=== PATIENT | male | born 1995 | race Two or more races ===

== ENCOUNTER 2021-04-28 08:43 | Inpatient (IN) | payer MEDICAID, OTHER ==
[~2021-04-28] VITALS: Ht 167.6 cm
[2021-04-28] MEDS ORDERED: SODIUM CHLORIDE 0.9% 1,000 ML IV ONE ×2 (09:15→14:45)
[2021-04-28 09:22] LABS: Red Cell Distribution Width 13.3 % (11.8-14.3)
[2021-04-28 09:24] LABS: Hematocrit 54.2 % (41.0-53.0); Hemoglobin 19.1 g/dL (13.5-17.5); Mean Corpuscular Hemoglobin 30.2 pg (28.0-32.0); Mean Corpuscular Hgb Conc. 35.2 g/dL (32.0-36.0); Mean Corpuscular Volume 85.8 fL (80.0-100.0); Red Blood Cells 6.32 10^6/uL (4.5-5.90); White Blood Cell 23.6 10^3/uL (4.4-10.8)
[2021-04-28 09:37] LABS: Calcium 9.1 mg/dL (8.5-10.1); Potassium 3.2 mmol/L (3.5-5.1)
[2021-04-28] MEDS ORDERED: IOHEXOL 350 MG/ML 100ML IJ ONE (09:37)
[2021-04-28 09:43] LABS: Albumin 2.9 g/dL (3.4-5.0); BUN/Creatinine Ratio 17.6; Bilirubin, Total 2.9 mg/dL (0.2-1.0); Total Protein 8.1 g/dL (6.4-8.2)
[2021-04-28 09:45] LABS: Amphetamine Screen, Urine NEGATIVE (NEGATIVE); Barbiturate Scree,Urine POSITIVE (NEGATIVE); Benzodiazephine Screen, Urine NEGATIVE (NEGATIVE); Cocaine Screen, Urine NEGATIVE (NEGATIVE); Opiate Scree,Urine NEGATIVE (NEGATIVE); Phencyclidine Screen, Urine NEGATIVE (NEGATIVE)
[2021-04-28 09:52] LABS: Cannabinoid Screen, Urine POSITIVE (NEGATIVE)
[2021-04-28] MEDS ORDERED: IOHEXOL 300 MG/ML 100ML BOTTLE IJ ONE (09:52)
[2021-04-28 09:58] LABS: Band Neutrophils % (manual) 0; Basophils % (manual) 0 (0.0-2.0); Blast Cells 0; Eosinophils % (manual) 0 (0-7); Metamyelocytes % 0; Myelocytes % 0; Promyelocytes % 0; Reactive Lymphocytes 0
[2021-04-28 10:30] LABS: Lymphocytes % (manual) 4 (10.0-50.0); Monocytes % (manual) 2 (0-12)
[2021-04-28] MEDS ORDERED: PIPERACILLIN-TAZOB 3.375GM 100 ML IV ONE ×2 (10:45→14:45)
[2021-04-28] MEDS ORDERED: ONDANSETRON HCL 4 MG/2 ML VIAL IV ONE ×2 (10:45→14:45)
[2021-04-28] MEDS ORDERED: SODIUM CHLORIDE 0.9% 1,000 ML IVB ONE (10:45)
[2021-04-28] MEDS ORDERED: MORPHINE SULFATE 4 MG/ML SYR/VIAL IV ONE (10:45)
[2021-04-28] MEDS ORDERED: METOCLOPRAMIDE HCL 5MG/ml INJ 2ml VIAL IV PRN (12:30)
[2021-04-28] MEDS ORDERED: MORPHINE SULFATE 4 MG/ML SYR/VIAL IV PRN (12:30)
[2021-04-28] MEDS ORDERED: GLYCOPYRROLATE 0.2 MG/ML 1ML VIAL ONE (12:40)
[2021-04-28] MEDS ORDERED: MIDAZOLAM HCL 2MG/2ML 2ml VIAL (1mg/ml) ONE (12:40)
[2021-04-28] MEDS ORDERED: fentaNYL CITRATE 100 MCG/2 ML VL ONE ×2 (12:40→13:17)
[2021-04-28] MEDS ORDERED: ROCURONIUM 10MG/ML 10ML VIAL IV ONE (12:40)
[2021-04-28] MEDS ORDERED: NEOSTIGMINE 1 MG/ML INJ (10mg/10ML VIAL) ONE (12:40)
[2021-04-28] MEDS ORDERED: MEPERIDINE HCL (25 MG/ML) 1ML VIAL ONE (12:40)
[2021-04-28] MEDS ORDERED: ONDANSETRON HCL 4 MG/2 ML VIAL ONE (12:40)
[2021-04-28] MEDS ORDERED: SODIUM CHLORIDE LOCK 10 ML ONE (12:40)
[2021-04-28] MEDS ORDERED: PROPOFOL 10 MG/ML 20 ML IV ONE (12:40)
[2021-04-28] MEDS ORDERED: SUCCINYLCHOLINE CHLORIDE 20 MG/ML 10ML VIAL IV ONE (12:54)
[2021-04-28] MEDS: BUPIVACAINE 0.25% INJ 50ML VIAL ONE ×2 (12:58→14:20)
[2021-04-28] MEDS ORDERED: metroNIDAZOLE 500MG/100ML 100 ML IV ONE ×2 (13:03→14:45)
[2021-04-28] MEDS: metroNIDAZOLE 500MG/100ML 100 ML IV SCH ×2 (13:04→23:17)
[2021-04-28] MEDS ORDERED: fentaNYL CITRATE 5 ML ONE (13:31)
[2021-04-28 13:32] LABS: INR 1.44 (0.9-1.15); Partial Thromboplastin Time 28.5 sec (23.6-33.0)
[2021-04-28] MEDS ORDERED: POVIDONE IODINE 10 % TOPICAL OINT 30GM TOP ONE (14:23)
[2021-04-28] MEDS ORDERED: ONDANSETRON HCL 4 MG/2 ML VIAL IM ONE (14:45)
[2021-04-28] MEDS ORDERED: HYDROmorphone HCL 2 MG/ML VL IV ONE (14:45)
[2021-04-28] MEDS ORDERED: PANTOPRAZOLE 40 MG/10 ML VIAL INJ IV ONE (14:45)
[2021-04-28] MEDS ORDERED: HYDROmorphone HCL 2 MG/ML VL ONE (15:21)
[2021-04-28] MEDS: HYDROmorphone HCL 2 MG/ML VL IV PRN ×2 (15:23→15:53)
[2021-04-28] MEDS ORDERED: NITROGLYCERIN 0.4 MG SL TAB SL PRN (16:00)
[2021-04-28] MEDS ORDERED: hydrALAZINE HCL 20 MG/ML VL IV PRN (16:00)
[2021-04-28] MEDS ORDERED: MORPHINE SULFATE INJECTION 2 MG/ML SYRG IV PRN (16:00)
[2021-04-28] MEDS ORDERED: ACETAMINOPHEN 325 MG RECT SUPP PR PRN (16:00)
[2021-04-28] MEDS ORDERED: ONDANSETRON HCL 4 MG/2 ML VIAL IV PRN (16:00)
[2021-04-28] MEDS: POTASSIUM CHLORIDE 20 MEQ in D5W/LACTATED RINGERS 1,000 ML IV SCH (17:50)
[2021-04-28] MEDS: PIPERACILLIN-TAZOB 3.375GM 100 ML IV SCH (19:00)
[2021-04-28] MEDS ORDERED: METOPROLOL TARTRATE 1MG/1ML-5ML VIAL IV ONE (19:35)
[2021-04-28] MEDS: METOPROLOL TARTRATE 1MG/1ML-5ML VIAL IV PRN (19:40)
[2021-04-28 21:12] VITALS: BP 102/49
[2021-04-28] MEDS ORDERED: INFLUENZA QUAD 2021-2022 0.5 ML SYRG IM ONE (21:30)
[2021-04-28 22:00] VITALS: BP 131/83
[2021-04-28 22:11] LABS: Hematocrit 49.5 % (41.0-53.0); Hemoglobin 16.7 g/dL (13.5-17.5); Mean Corpuscular Hgb Conc. 33.7 g/dL (32.0-36.0); Mean Corpuscular Volume 86.1 fL (80.0-100.0); Red Blood Cells 5.75 10^6/uL (4.5-5.90); Red Cell Distribution Width 13.2 % (11.8-14.3); White Blood Cell 28.4 10^3/uL (4.4-10.8)
[2021-04-28 22:13] LABS: Calcium 7.3 mg/dL (8.5-10.1); Potassium 3.8 mmol/L (3.5-5.1)
[2021-04-28 22:17] LABS: Basophils % (manual) 0 (0.0-2.0); Blast Cells 0; Eosinophils % (manual) 0 (0-7); Myelocytes % 0; Promyelocytes % 0; Reactive Lymphocytes 0
[2021-04-28 22:54] LABS: Band Neutrophils % (manual) 75; Lymphocytes % (manual) 3 (10.0-50.0); Metamyelocytes % 1; Monocytes % (manual) 5 (0-12)
[2021-04-29] MEDS: POTASSIUM CHLORIDE 20 MEQ in D5W/LACTATED RINGERS 1,000 ML IV SCH ×3 (00:51→13:01)
[2021-04-29] MEDS: LORazepam 2MG/ML-1ML VIAL IV PRN (02:57)
[2021-04-29] MEDS: metroNIDAZOLE 500MG/100ML 100 ML IV SCH ×3 (04:53→17:59)
[2021-04-29 05:37] VITALS: BP 140/83
[2021-04-29 06:06] LABS: Hematocrit 47.4 % (41.0-53.0); Mean Corpuscular Hemoglobin 29.2 pg (28.0-32.0); Mean Corpuscular Hgb Conc. 33.7 g/dL (32.0-36.0); Mean Corpuscular Volume 86.6 fL (80.0-100.0); Red Blood Cells 5.47 10^6/uL (4.5-5.90); Red Cell Distribution Width 13.5 % (11.8-14.3); White Blood Cell 26.1 10^3/uL (4.4-10.8)
[2021-04-29] MEDS: PIPERACILLIN-TAZOB 3.375GM 100 ML IV SCH ×4 (06:21→18:00)
[2021-04-29 06:54] LABS: Basophils % (manual) 0 (0.0-2.0); Blast Cells 0; Eosinophils % (manual) 0 (0-7); Promyelocytes % 0; Reactive Lymphocytes 0
[2021-04-29 07:09] LABS: Potassium 3.8 mmol/L (3.5-5.1)
[2021-04-29 07:47] LABS: Albumin 1.6 g/dL (3.4-5.0); BUN/Creatinine Ratio 24.7; Bilirubin, Total 1.8 mg/dL (0.2-1.0); Calcium 7.7 mg/dL (8.5-10.1); Total Protein 4.9 g/dL (6.4-8.2)
[2021-04-29 08:00] VITALS: BP 134/78
[2021-04-29 08:03] LABS: Band Neutrophils % (manual) 48; Lymphocytes % (manual) 3 (10.0-50.0); Metamyelocytes % 1; Monocytes % (manual) 2 (0-12); Myelocytes % 1
[2021-04-29 08:37] VITALS: BP 140/80
[2021-04-29] MEDS: PANTOPRAZOLE 40 MG/10 ML VIAL INJ IV SCH (09:52)
[2021-04-29 12:30] VITALS: BP 140/80
[2021-04-29] MEDS: MORPHINE SULFATE 4 MG/ML SYR/VIAL IV PRN (15:30)
[2021-04-29 16:48] VITALS: BP 135/78
[2021-04-29 21:30] VITALS: BP 132/79
[2021-04-30] MEDS: PIPERACILLIN-TAZOB 3.375GM 100 ML IV SCH ×4 (00:47→18:00)
[2021-04-30] MEDS: MORPHINE SULFATE 4 MG/ML SYR/VIAL IV PRN ×3 (00:49→21:37)
[2021-04-30] MEDS: POTASSIUM CHLORIDE 20 MEQ in D5W/LACTATED RINGERS 1,000 ML IV SCH ×5 (00:54→21:36)
[2021-04-30] MEDS: metroNIDAZOLE 500MG/100ML 100 ML IV SCH ×3 (02:36→17:00)
[2021-04-30 05:00] VITALS: BP 133/78
[2021-04-30 06:29] LABS: Hematocrit 41.6 % (41.0-53.0); Hemoglobin 13.9 g/dL (13.5-17.5); Mean Corpuscular Hemoglobin 29.1 pg (28.0-32.0); Mean Corpuscular Hgb Conc. 33.5 g/dL (32.0-36.0); Mean Corpuscular Volume 86.8 fL (80.0-100.0); Red Blood Cells 4.79 10^6/uL (4.5-5.90); Red Cell Distribution Width 13.6 % (11.8-14.3)
[2021-04-30 06:38] LABS: Albumin 1.4 g/dL (3.4-5.0); Calcium 7.4 mg/dL (8.5-10.1); Potassium 3.7 mmol/L (3.5-5.1)
[2021-04-30 06:41] LABS: BUN/Creatinine Ratio 20.6; Bilirubin, Total 1.9 mg/dL (0.2-1.0); Total Protein 4.7 g/dL (6.4-8.2)
[2021-04-30 06:53] LABS: Basophils % (manual) 0 (0.0-2.0); Blast Cells 0; Metamyelocytes % 0; Myelocytes % 0; Promyelocytes % 0; Reactive Lymphocytes 0
[2021-04-30 09:00] VITALS: BP 125/84
[2021-04-30] MEDS: PANTOPRAZOLE 40 MG/10 ML VIAL INJ IV SCH (09:33)
[2021-04-30 12:29] LABS: Band Neutrophils % (manual) 8; Eosinophils % (manual) 1 (0-7); Lymphocytes % (manual) 14 (10.0-50.0); Monocytes % (manual) 6 (0-12)
[2021-04-30 13:00] VITALS: BP 134/82
[2021-04-30] MEDS ORDERED: METOCLOPRAMIDE HCL 5MG/ml INJ 2ml VIAL IV PRN (13:00)
[2021-04-30] MEDS ORDERED: NEOSTIGMINE 1 MG/ML INJ (10mg/10ML VIAL) SC ONE (13:00)
[2021-04-30 17:00] VITALS: BP 147/93
[2021-04-30] MEDS ORDERED: ACETAMINOPHEN 325 MG RECT SUPP PR PRN (19:00)
[2021-04-30] MEDS ORDERED: VANCOMYCIN PER PHARMACY 0 MG IV SCH (19:00)
[2021-04-30] MEDS: VANCOMYCIN 1GM/250ML 250 ML IV SCH (20:00)
[2021-04-30 22:00] VITALS: BP 151/89
[2021-05-01] MEDS: MORPHINE SULFATE 4 MG/ML SYR/VIAL IV PRN ×4 (00:15→20:22)
[2021-05-01] MEDS: PIPERACILLIN-TAZOB 3.375GM 100 ML IV SCH ×5 (00:56→23:31)
[2021-05-01] MEDS: LORazepam 2MG/ML-1ML VIAL IV PRN (02:57)
[2021-05-01] MEDS: VANCOMYCIN 1GM/250ML 250 ML IV SCH ×3 (04:21→17:51)
[2021-05-01 05:23] VITALS: BP 147/99
[2021-05-01] MEDS: POTASSIUM CHLORIDE 20 MEQ in D5W/LACTATED RINGERS 1,000 ML IV SCH ×4 (06:16→23:32)
[2021-05-01 07:29] LABS: Hematocrit 39.4 % (41.0-53.0); Hemoglobin 13.4 g/dL (13.5-17.5); Mean Corpuscular Hemoglobin 29.3 pg (28.0-32.0); Mean Corpuscular Hgb Conc. 33.9 g/dL (32.0-36.0); Mean Corpuscular Volume 86.5 fL (80.0-100.0); Red Blood Cells 4.55 10^6/uL (4.5-5.90); Red Cell Distribution Width 13.9 % (11.8-14.3); White Blood Cell 18.8 10^3/uL (4.4-10.8)
[2021-05-01 07:35] LABS: Potassium 3.7 mmol/L (3.5-5.1)
[2021-05-01 07:42] LABS: Albumin 1.5 g/dL (3.4-5.0); BUN/Creatinine Ratio 14.1; Bilirubin, Total 2.3 mg/dL (0.2-1.0); Calcium 7.6 mg/dL (8.5-10.1); Total Protein 4.9 g/dL (6.4-8.2)
[2021-05-01 07:53] LABS: Basophils % (manual) 0 (0.0-2.0); Blast Cells 0; Eosinophils % (manual) 0 (0-7); Metamyelocytes % 0; Myelocytes % 0; Promyelocytes % 0; Reactive Lymphocytes 0
[2021-05-01 08:44] VITALS: BP 149/95
[2021-05-01] MEDS: PANTOPRAZOLE 40 MG/10 ML VIAL INJ IV SCH (10:24)
[2021-05-01 12:59] LABS: Band Neutrophils % (manual) 11; Lymphocytes % (manual) 2 (10.0-50.0); Monocytes % (manual) 1 (0-12)
[2021-05-01 16:54] VITALS: BP 153/89
[2021-05-01 22:44] VITALS: BP 135/89
[2021-05-02] MEDS: LORazepam 2MG/ML-1ML VIAL IV PRN ×2 (00:32→22:56)
[2021-05-02] MEDS: VANCOMYCIN 1GM/250ML 250 ML IV SCH (00:38)
[2021-05-02] MEDS: PIPERACILLIN-TAZOB 3.375GM 100 ML IV SCH ×3 (05:52→18:00)
[2021-05-02 05:58] VITALS: BP 137/88
[2021-05-02 07:51] LABS: Potassium 3.9 mmol/L (3.5-5.1)
[2021-05-02 07:54] LABS: Albumin 1.4 g/dL (3.4-5.0); BUN/Creatinine Ratio 14.6; Calcium 7.5 mg/dL (8.5-10.1)
[2021-05-02 07:55] LABS: Hematocrit 38.2 % (41.0-53.0); Mean Corpuscular Hemoglobin 29.6 pg (28.0-32.0); Mean Corpuscular Volume 87.1 fL (80.0-100.0); Red Blood Cells 4.39 10^6/uL (4.5-5.90); Red Cell Distribution Width 13.9 % (11.8-14.3); White Blood Cell 17.8 10^3/uL (4.4-10.8)
[2021-05-02 07:57] LABS: Bilirubin, Total 2.4 mg/dL (0.2-1.0); Total Protein 4.7 g/dL (6.4-8.2)
[2021-05-02 08:03] LABS: Basophils % (manual) 0 (0.0-2.0); Blast Cells 0; Eosinophils % (manual) 0 (0-7); Myelocytes % 0; Promyelocytes % 0; Reactive Lymphocytes 0
[2021-05-02 08:59] LABS: Band Neutrophils % (manual) 21; Lymphocytes % (manual) 16 (10.0-50.0); Metamyelocytes % 2; Monocytes % (manual) 4 (0-12)
[2021-05-02 09:00] VITALS: BP 138/84
[2021-05-02] MEDS: POTASSIUM CHLORIDE 20 MEQ in D5W/LACTATED RINGERS 1,000 ML IV SCH ×3 (10:00→21:15)
[2021-05-02] MEDS: PANTOPRAZOLE 40 MG/10 ML VIAL INJ IV SCH (10:00)
[2021-05-02 13:00] VITALS: BP 148/86
[2021-05-02] MEDS: metroNIDAZOLE 500MG/100ML 100 ML IV SCH ×2 (14:13→22:03)
[2021-05-02 16:45] VITALS: BP 140/82
[2021-05-03] MEDS: POTASSIUM CHLORIDE 20 MEQ in D5W/LACTATED RINGERS 1,000 ML IV SCH ×3 (04:17→17:45)
[2021-05-03] MEDS: PIPERACILLIN-TAZOB 3.375GM 100 ML IV SCH ×4 (06:00→18:44)
[2021-05-03] MEDS: metroNIDAZOLE 500MG/100ML 100 ML IV SCH ×3 (06:21→18:44)
[2021-05-03 09:00] VITALS: BP 138/81
[2021-05-03] MEDS: PANTOPRAZOLE 40 MG/10 ML VIAL INJ IV SCH (10:05)
[2021-05-03 13:00] VITALS: BP 134/85
[2021-05-03 17:01] VITALS: BP 140/90
[2021-05-03] MEDS: MORPHINE SULFATE 4 MG/ML SYR/VIAL IV PRN (21:41)
[2021-05-03 22:00] VITALS: BP 140/92
[2021-05-04] MEDS: POTASSIUM CHLORIDE 20 MEQ in D5W/LACTATED RINGERS 1,000 ML IV SCH ×4 (00:30→20:12)
[2021-05-04] MEDS: LORazepam 2MG/ML-1ML VIAL IV PRN ×2 (00:30→19:32)
[2021-05-04] MEDS: PIPERACILLIN-TAZOB 3.375GM 100 ML IV SCH ×4 (00:35→18:16)
[2021-05-04 05:00] VITALS: BP 142/80
[2021-05-04] MEDS: metroNIDAZOLE 500MG/100ML 100 ML IV SCH ×3 (05:15→22:45)
[2021-05-04] MEDS: MORPHINE SULFATE 4 MG/ML SYR/VIAL IV PRN (05:40)
[2021-05-04 05:44] LABS: Hematocrit 38.5 % (41.0-53.0); Hemoglobin 12.9 g/dL (13.5-17.5); Mean Corpuscular Hemoglobin 28.6 pg (28.0-32.0); Mean Corpuscular Hgb Conc. 33.4 g/dL (32.0-36.0); Mean Corpuscular Volume 85.6 fL (80.0-100.0); Red Blood Cells 4.49 10^6/uL (4.5-5.90); Red Cell Distribution Width 13.5 % (11.8-14.3); White Blood Cell 19.1 10^3/uL (4.4-10.8)
[2021-05-04 06:03] LABS: Basophils % (manual) 0 (0.0-2.0); Blast Cells 0; Eosinophils % (manual) 0 (0-7); Myelocytes % 0; Promyelocytes % 0; Reactive Lymphocytes 0
[2021-05-04 08:00] VITALS: BP 134/80
[2021-05-04 09:00] VITALS: BP 134/80
[2021-05-04 09:32] LABS: Band Neutrophils % (manual) 8; Lymphocytes % (manual) 11 (10.0-50.0); Metamyelocytes % 2; Monocytes % (manual) 5 (0-12)
[2021-05-04] MEDS: PANTOPRAZOLE 40 MG/10 ML VIAL INJ IV SCH (10:22)
[2021-05-04] MEDS ORDERED: OMNIPAQUE ORAL SOLN 500ml 12mg/ml PO ONE (12:02)
[2021-05-04 13:00] VITALS: BP 140/81
[2021-05-04] MEDS ORDERED: IOHEXOL 300 MG/ML 100ML BOTTLE IJ ONE (14:02)
[2021-05-04 17:00] VITALS: BP 137/85
[2021-05-04 22:00] VITALS: BP 132/90
[2021-05-05] VITALS (10 sets, daily range): BP systolic 87–134; BP diastolic 49–82
[2021-05-05] MEDS: PIPERACILLIN-TAZOB 3.375GM 100 ML IV SCH ×5 (00:40→23:58)
[2021-05-05] MEDS: LORazepam 2MG/ML-1ML VIAL IV PRN (00:40)
[2021-05-05] MEDS: POTASSIUM CHLORIDE 20 MEQ in D5W/LACTATED RINGERS 1,000 ML IV SCH ×4 (03:25→23:59)
[2021-05-05] MEDS: metroNIDAZOLE 500MG/100ML 100 ML IV SCH ×3 (06:00→22:00)
[2021-05-05] MEDS: PANTOPRAZOLE 40 MG/10 ML VIAL INJ IV SCH (09:15)
[2021-05-05] MEDS ORDERED: MIDAZOLAM HCL 2MG/2ML 2ml VIAL (1mg/ml) ONE (15:25)
[2021-05-05] MEDS ORDERED: FLUMAZENIL 0.1 MG/ML INJ 10ML MDV IV ONE (15:26)
[2021-05-05] MEDS ORDERED: fentaNYL CITRATE 100 MCG/2 ML VL ONE (15:26)
[2021-05-05] MEDS ORDERED: NALOXONE HCL 1MG/ML 2ML SYRINGE ONE (15:26)
[2021-05-06] MEDS: metroNIDAZOLE 500MG/100ML 100 ML IV SCH ×3 (04:46→21:23)
[2021-05-06 05:00] VITALS: BP 125/76
[2021-05-06] MEDS: PIPERACILLIN-TAZOB 3.375GM 100 ML IV SCH ×3 (06:13→17:47)
[2021-05-06] MEDS: POTASSIUM CHLORIDE 20 MEQ in D5W/LACTATED RINGERS 1,000 ML IV SCH ×3 (06:15→19:49)
[2021-05-06 06:55] LABS: Hematocrit 36.7 % (41.0-53.0); Hemoglobin 12.3 g/dL (13.5-17.5); Mean Corpuscular Hemoglobin 28.9 pg (28.0-32.0); Mean Corpuscular Hgb Conc. 33.4 g/dL (32.0-36.0); Mean Corpuscular Volume 86.6 fL (80.0-100.0); Red Blood Cells 4.24 10^6/uL (4.5-5.90); Red Cell Distribution Width 13.6 % (11.8-14.3); White Blood Cell 11.2 10^3/uL (4.4-10.8)
[2021-05-06 07:00] LABS: Basophils % (manual) 0 (0.0-2.0); Blast Cells 0; Eosinophils % (manual) 0 (0-7); Myelocytes % 0; Promyelocytes % 0; Reactive Lymphocytes 0
[2021-05-06 07:41] LABS: Band Neutrophils % (manual) 9; Lymphocytes % (manual) 8 (10.0-50.0); Metamyelocytes % 1; Monocytes % (manual) 9 (0-12)
[2021-05-06 09:39] VITALS: BP 119/69
[2021-05-06] MEDS: PANTOPRAZOLE 40 MG/10 ML VIAL INJ IV SCH (10:07)
[2021-05-06 12:51] VITALS: BP 121/73
[2021-05-06 16:56] VITALS: BP 120/68
[2021-05-06 20:58] VITALS: BP 124/75
[2021-05-07] MEDS: LORazepam 2MG/ML-1ML VIAL IV PRN (00:13)
[2021-05-07] MEDS: PIPERACILLIN-TAZOB 3.375GM 100 ML IV SCH ×4 (00:44→17:35)
[2021-05-07] MEDS: POTASSIUM CHLORIDE 20 MEQ in D5W/LACTATED RINGERS 1,000 ML IV SCH ×4 (05:49→23:11)
[2021-05-07] MEDS: metroNIDAZOLE 500MG/100ML 100 ML IV SCH ×3 (05:49→21:42)
[2021-05-07 07:30] VITALS: BP 120/73
[2021-05-07 09:00] VITALS: BP 120/73
[2021-05-07] MEDS: PANTOPRAZOLE 40 MG/10 ML VIAL INJ IV SCH (10:50)
[2021-05-07 12:41] VITALS: BP 117/68
[2021-05-07 16:57] VITALS: BP 125/78
[2021-05-07 21:35] VITALS: BP 123/72
[2021-05-08] MEDS: PIPERACILLIN-TAZOB 3.375GM 100 ML IV SCH ×3 (00:41→12:00)
[2021-05-08] MEDS: LORazepam 2MG/ML-1ML VIAL IV PRN (00:50)
[2021-05-08 05:00] VITALS: BP 121/73
[2021-05-08] MEDS: POTASSIUM CHLORIDE 20 MEQ in D5W/LACTATED RINGERS 1,000 ML IV SCH ×2 (06:03→12:13)
[2021-05-08] MEDS: metroNIDAZOLE 500MG/100ML 100 ML IV SCH (06:04)
[2021-05-08] MEDS: PANTOPRAZOLE 40 MG/10 ML VIAL INJ IV SCH (08:31)
[2021-05-08 08:44] VITALS: BP 113/69
[2021-05-08 11:49] VITALS: BP 113/69
[2021-05-08 12:48] VITALS: BP 121/70
[2021-05-21] MEDS ORDERED: PANT40TA2 PO (04:19)
[2021-05-21] MEDS ORDERED: ACET-1156 PO (04:20)
== END 2021-05-08 12:55 | disposition home or self-care (01) | DRG 710 ==
LOC: ER 08:43 → OVERFLOW 15:54 → WEST WING 20:15 → TELE-WESTW 20:31
PROVIDERS: ADMIT Family Medicine; ATTEND Family Medicine
PROC: 0WJG4ZZ Inspection of Peritoneal Cavity, Percutaneous Endoscopic Approach (ICD-10-PCS; 2021-04-28)
PROC: 0D9W0ZZ Drainage of Peritoneum, Open Approach (ICD-10-PCS; 2021-04-28)
PROC: 0DTJ0ZZ Resection of Appendix, Open Approach (ICD-10-PCS; principal; 2021-04-28 13:07)
PROC: 0W9G3ZZ Drainage of Peritoneal Cavity, Percutaneous Approach (ICD-10-PCS; 2021-05-05)
PROC: BW40ZZZ Ultrasonography of Abdomen (ICD-10-PCS; 2021-05-05)
DX: A41.9 Sepsis, unspecified organism (principal); K35.33 Acute appendicitis with perforation, localized peritonitis, and gangrene, with abscess; R18.8 Other ascites; Z53.31 Laparoscopic surgical procedure converted to open procedure; R65.20 Severe sepsis without septic shock; R53.83 Other fatigue; Z20.822 Contact with and (suspected) exposure to COVID-19
CPT/HCPCS: 36415; 71045; 74176; 74177; 76942; 80048; 80053; 80202; 80307; 83690; 85007; 85027; 85610; 85730; 86850; 86900; 86901; 87040; 87070; 87075; 87076; 87077; 87186; 87205; 87426; 93005; 96365; 96375; 99291; C1729; C9113; G0378; J0330; J2250; J2405; J2543; J2704; J3490

== ENCOUNTER 2021-05-15 11:25 | Emergency (ER) | payer SELFPAY ==
[2021-05-15 11:32] VITALS: BP 124/90
[2021-05-15 13:50] LABS: Basophils # (auto) 0.1 10 ^3/uL (0-0.2); Basophils % (auto) 1.1 % (0.0-2.0); Eosinophils # (auto) 0.2 10 ^3/uL (0-0.8); Eosinophils % (auto) 2.3 % (0.0-7.0); Hematocrit 41.8 % (41.0-53.0); Hemoglobin 13.8 g/dL (13.5-17.5); Lymphocytes # (auto) 1.8 10 ^3/uL (0.4-5.4); Lymphocytes % (auto) 18.4 % (10.0-50.0); Mean Corpuscular Hemoglobin 28.6 pg (28.0-32.0); Mean Corpuscular Hgb Conc. 33.1 g/dL (32.0-36.0); Mean Corpuscular Volume 86.5 fL (80.0-100.0); Monocytes # (auto) 0.7 10 ^3/uL (0-1.3); Monocytes % (auto) 7.3 % (0.0-12.0); Neutrophils # (auto) 6.8 10 ^3/uL (1.6-8.6); Neutrophils % (auto) 70.9 % (37.0-80.0); Nucleated Red Blood Cells % 0.1 %; Red Blood Cells 4.84 10^6/uL (4.5-5.90); Red Cell Distribution Width 13.9 % (11.8-14.3); White Blood Cell 9.6 10^3/uL (4.4-10.8)
[2021-05-15 14:11] LABS: Albumin 3.1 g/dL (3.4-5.0); Calcium 8.6 mg/dL (8.5-10.1)
[2021-05-15 14:15] LABS: BUN/Creatinine Ratio 12.5; Bilirubin, Total 0.5 mg/dL (0.2-1.0); Total Protein 7.1 g/dL (6.4-8.2)
[2021-05-15] MEDS ORDERED: DOXY-286 PO (18:14)
== END 2021-05-15 20:59 | disposition left against medical advice (07) ==
LOC: ER 11:25
DX: L03.311 Cellulitis of abdominal wall (principal); Z53.29 Procedure and treatment not carried out because of patient's decision for other reasons
CPT/HCPCS: 36415; 80053; 85025